=== PATIENT | female | born 1965 | race Caucasian/White ===

== ENCOUNTER 2018-01-05 11:32 | Emergency (ER) | payer OTHER ==
[2018-01-05 11:47] VITALS: BP 141/89; PULSE 93; RESP 16; TEMP 96.6; O2SAT 96
[2018-01-05] MEDS ORDERED: CYCLOBENZAPRINE 10 MG TAB ONE (11:56)
== END 2018-01-05 12:22 | disposition home or self-care (01) | DRG 552 ==
LOC: ED 11:32
DX: M54.2 Cervicalgia (principal)
CPT/HCPCS: 99282; A9270-GY